=== PATIENT | female | born 1985 | race Caucasian/White ===

== ENCOUNTER 2022-08-30 12:39 | Outpatient (CLI) | payer OTHER ==
[2022-08-30 13:57] LABS: Hemoglobin 12.9 g/dL (12.0-15.5); Mean Corpuscular HGB CONC 33.2 g/dL (32.0-36.0); Mean Corpuscular Hemoglobin 27.7 pg (27.0-33.0); Mean Corpuscular Volume 83.4 fl (81.6-98.3); Mean Platelet Volume 10.8 fl (7.4-10.4); Platelet Count 330 10x3/uL (150-450); RBC Distribution Width 12.4 % (11.5-14.5); Red Blood Cell (RBC) Count 4.65 10x6/uL (3.90-5.03); White Blood Cell (WBC) Count 9.2 10x3/uL (3.5-10.5)
[2022-08-30 14:03] LABS: BHCG - Serum Negative (NEGATIVE); Pregs Control Background? CLEAR/WHITE (CLR/WHITE); Pregs Control Bar Appear? YES (CONTROL BAR)
== END 2022-08-30 12:40 | disposition home or self-care (01) ==
LOC: CSHLAB 12:39
PROVIDERS: ATTEND Obstetrics & Gynecology
DX: Z01.812 Encounter for preprocedural laboratory examination (principal); N92.0 Excessive and frequent menstruation with regular cycle; N94.6 Dysmenorrhea, unspecified
CPT/HCPCS: 84703; 85027; 86850; 86900; 86901

== ENCOUNTER 2022-09-03 08:29 | Observation (INO) | payer OTHER ==
[2022-08-30 09:26] VITALS: BMI 46.5
[~2022-09-03 08:29] MED LIST: PROPOFOL 20 ML ONE
[2022-09-03] MEDS ORDERED: Rocuronium Bromide 10 MG/ML (10ML VIAL) ONE (08:31)
[2022-09-03] MEDS ORDERED: Lidocaine 1% PF 5 ML VIAL ONE (08:31)
[2022-09-03] MEDS ORDERED: Gabapentin 300 MG CAP ONE (08:40)
[2022-09-03] MEDS ORDERED: CeleCOXIB 100 MG CAP ONE (08:40)
[2022-09-03] MEDS ORDERED: Famotidine/PF 20 mg/2ml Vial ONE (08:40)
[2022-09-03] MEDS ORDERED: Bupivacaine HCl 0.5%/Epinephrine 1:200,000/PF 30 ml Vial ONE (09:27)
[2022-09-03] MEDS ORDERED: CEFAZOLIN 2 GM VIAL ONE (09:49)
[2022-09-03] MEDS ORDERED: Fentanyl 250 MCG/5 ML VIAL ONE (10:05)
[2022-09-03] MEDS ORDERED: Scopolamine 1.5 mg/72 hour Patch ONE (10:05)
[2022-09-03] MEDS ORDERED: Promethazine HCl 25 MG/ML VIAL ONE (10:08)
[2022-09-03] MEDS ORDERED: SUGAMMADEX SODIUM 200 MG/2 ML VIAL ONE (10:09)
[2022-09-03] MEDS ORDERED: Fentanyl 100 MCG/2 ML VIAL ONE ×2 (13:14→16:39)
[2022-09-03] MEDS ORDERED: Ketorolac Tromethamine 30 MG/ML VIAL ONE (13:14)
[2022-09-03] MEDS ORDERED: traMADol HCl 50 MG TAB ONE (15:35)
[2022-09-03] MEDS ORDERED: Morphine 2 MG/ML VIAL SLOW IVP PRN (17:36)
[2022-09-03] MEDS: Ondansetron PF 4 MG/2 ML Vial IVP PRN ×2 (17:59→22:00)
[2022-09-03] MEDS: traMADol HCl 50 MG TAB PO PRN (19:56)
[2022-09-03] MEDS: Morphine 4 MG/ML VIAL SLOW IVP PRN (21:54)
[2022-09-04] MEDS: traMADol HCl 50 MG TAB PO PRN ×3 (00:44→12:02)
[2022-09-04] MEDS: Morphine 4 MG/ML VIAL SLOW IVP PRN (03:55)
[2022-09-04] MEDS: Ondansetron PF 4 MG/2 ML Vial IVP PRN (08:20)
[2022-09-04] MEDS ORDERED: Estradiol 0.05mg/24 Hour Patch (Weekly) TD SCH (09:00)
[2022-09-04] MEDS ORDERED: Oxybutynin ER 5 MG TAB PO SCH (09:00)
[2022-09-04 11:32] VITALS: BP 90/57; TEMP 97.8
== END 2022-09-04 12:35 | disposition home or self-care (01) ==
LOC: CSHSDC 08:29 → CSHPP 17:25 → INTOOBSV 17:25
PROVIDERS: ADMIT Obstetrics & Gynecology; ATTEND Obstetrics & Gynecology
PROC: 0UT9FZZ Resection of Uterus, Via Natural or Artificial Opening With Percutaneous Endoscopic Assistance (ICD-10-PCS; principal; 2022-09-03)
PROC: 0UT7FZZ Resection of Bilateral Fallopian Tubes, Via Natural or Artificial Opening With Percutaneous Endoscopic Assistance (ICD-10-PCS; 2022-09-03)
PROC: 0UT2FZZ Resection of Bilateral Ovaries, Via Natural or Artificial Opening With Percutaneous Endoscopic Assistance (ICD-10-PCS; 2022-09-03)
DX: N92.0 Excessive and frequent menstruation with regular cycle (principal); N94.5 Secondary dysmenorrhea; E28.2 Polycystic ovarian syndrome; N73.6 Female pelvic peritoneal adhesions (postinfective); E03.9 Hypothyroidism, unspecified; Z79.899 Other long term (current) drug therapy; Z88.5 Allergy status to narcotic agent; Z88.8 Allergy status to other drugs, medicaments and biological substances; Z80.41 Family history of malignant neoplasm of ovary; E66.01 Morbid (severe) obesity due to excess calories; Z68.42 Body mass index [BMI] 45.0-49.9, adult
CPT/HCPCS: 88307; 96374; 96375; 96376; C1889; G0378; J1885; J2270; J2272; J2405; J2550; J2704; J3010; S0028